=== PATIENT | female | born 1955 | race Hispanic/Latino ===

== ENCOUNTER 2019-01-01 12:50 | Outpatient (CLI) | payer OTHER ==
--- NOTE | 2019-01-01 13:34 | BD ---
DEXA BONE MINERAL DENSITOMETRY STUDY: HISTORY: Encounter for screening for osteoporosis. COMPARISON: DEXA exam from 2016. FINDINGS: Lumbar Spine: BMD (g/cm2) L1 0.723 T-Score: -2.4 -0.9 L2 0.719 T-Score: -2.8 -1.1 L3 0.779 T-Score: -2.8 -1.0 L4 0.906 T-Score: -1.4 0.5 L1-L4 0.789 T-Score: -2.3 -0.6 The comparison from 2016 is -0.2, statistically significantly. Femoral Neck: 0.614 T-Score: -2.1 -0.8 Total Femur: 0.695 T-Score: -2.0 -0.9 The comparison is -5.2%, statistically significant. WHO classification: Osteopenia. Ten-Year fracture risk: Major osteoporotic fracture: 7.8%. Hip fracture: 1.3%. Impression: Osteopenia with fracture risk as above. POS: TPC
--- NOTE | 2019-01-01 14:17 | MMO ---
Bilateral MAMMO Bilat Screen DDI+SULEMA. CLINICAL HISTORY: Patient is 63 years old and is seen for screening. The patient has no family history of breast cancer. The patient has no personal history of cancer. VIEWS: The views performed were: bilateral craniocaudal with tomosynthesis and bilateral mediolateral oblique with tomosynthesis. FILMS COMPARED: The present examination has been compared to prior imaging studies performed at [facility] on 09/13/2010, 09/17/2011, 04/22/2014 and 04/20/2015. This study has been interpreted with the assistance of computer-aided detection. MAMMOGRAM FINDINGS: There are scattered fibroglandular densities. There is an asymmetry measuring 11 millimeters seen in the MLO view only seen in the axillary tail of the right breast. In the left breast, there are no suspicious masses, calcifications or areas of architectural distortion. IMPRESSION: ASYMMETRY IN THE RIGHT BREAST REQUIRES ADDITIONAL EVALUATION. AN ULTRASOUND EXAM IS RECOMMENDED. THE RESULTS OF THIS EXAM WERE SENT TO THE PATIENT. ACR BI-RADS Category 0 - Incomplete: Need additional imaging evaluation. [facility] will notify the patient of the need for additional imaging services. MAMMOGRAPHY NOTE: 1. A negative mammogram report should not delay a biopsy if a dominant of clinically suspicious mass is present. 2. Approximately 10% to 15% of breast cancers are not detected by mammography. 3. Adenosis and dense breasts may obscure an underlying neoplasm. Reported by: KEERTHI DUNCAN MD Electonically Signed: [id number]
== END 2019-01-01 12:51 | disposition home or self-care (01) ==
LOC: BICMAMMO 12:50
PROVIDERS: ATTEND Family Medicine
DX: Z12.31 Encounter for screening mammogram for malignant neoplasm of breast (principal); Z13.820 Encounter for screening for osteoporosis; N64.89 Other specified disorders of breast; M81.0 Age-related osteoporosis without current pathological fracture; M85.859 Other specified disorders of bone density and structure, unspecified thigh
CPT/HCPCS: 77063; 77067; 77080

== ENCOUNTER 2019-01-14 15:59 | Outpatient (CLI) | payer OTHER ==
--- NOTE | 2019-01-14 16:26 | ULT ---
LIMITED RIGHT BREAST ULTRASOUND: 01/14/19 PROVIDED CLINICAL HISTORY: Abnormal screening mammogram. FINDINGS: Correlation is made with the screening mammogram of 01/01/19. On that examination, a high density spic ulated mass was seen in the right axillary tail/axilla. On the current ultrasound examination, there is a somewhat vague area of shadowing present in the region of the right axilla that may correspond t o the mammographic finding. A nonenlarged axillary lymph node is also seen. The axillary tail demonst rates an unremarkable sonographic appearance. IMPRESSION: Area of shadowing in the right axilla may correspond to the mammographic abnormality. Correlation wit h ultrasound guided biopsy is recommended with with post-biopsy mammograms to assess for congruity of the mammogram and ultrasound abnormalities. BI-RADS 4: Suspicious Abnormality - Ultrasound guided biopsy is recommended. Results and recommendati ons communicated to the patient via automotive parts interpreter. POS: OFF
== END 2019-01-14 16:00 | disposition home or self-care (01) ==
LOC: BICULT 15:59
PROVIDERS: ATTEND Family Medicine
DX: N64.89 Other specified disorders of breast (principal)

== ENCOUNTER → 2019-01-18 | Day surgery (SDC) | payer OTHER ==
--- NOTE | 2019-01-18 15:58 | ULT ---
ULTRASOUND RIGHT BREAST LIMITED: 01/18/2019 HISTORY: A 63-year-old female with right axillary mass, scheduled for ultrasound guided right breast biopsy. TECHNIQUE: Focused ultrasound of the entire right axilla and axillary tail of the right breast. FINDINGS: The area of shadowing mentioned on the report of the previous ultrasound of 01/14/2019 could not be r eproduced on today's ultrasound. Dr. Gregorio telephoned Ellen, the assistant professor surgical technology who performed the 01/14 ultrasound. Ellen stated that the finding of shadowing was questionable and that she was not sure whether it was real. There is a benign appearing lymph node in the right axilla on the previous ultrasound. Additional mammographic views of the right breast were obtained today, including a repeat RMLO view, centered more superiorly and posteriorly, with 3D tomosynthesis, plus true lateral view and exaggerat ed CC view, also with tomosynthesis. The focal nodule overlying the pectoralis muscle, deep in the po sterior-superior aspect of the axilla, persists on the repeat MLO view but cannot be found on the oth er views. Therefore it would not be possible to perform a mammographically guided needle localization . On the 3D tomosynthesis there is a question as to whether the margins are irregular and spiculated or whether the appearance of such is due to convergence of multiple blood vessels. IMPRESSION: 1. BI-RADS 3 - probably benign. Short interval followup suggested. 2. Although the lesion persists on the repeat RMLO view, it cannot be visualized on any other mammogr aphic view, and the results of the previous ultrasound cannot be reproduced on today's ultrasound. Th e mass is indeterminate for malignancy rather than probably benign. 3. Recommend serial short interval follow-up right mammograms and right breast/axillary ultrasounds i n three months, six months, one year, and two years. 4. Biopsy would be ideal but it cannot be performed because of difficulty in localization. POS: ISABEL
--- NOTE | 2019-01-18 16:06 | MMO ---
Right Breast MAMMO Unilat Diag DDI RT+SULEMA. CLINICAL HISTORY: Patient is 63 years old and is seen for additional evaluation requested from prior study. The patient has no family history of breast cancer. The patient has no personal history of cancer. VIEWS: The views performed were: right mediolateral oblique spot compression with tomosynthesis and right mediolateral with tomosynthesis. FILMS COMPARED: The present examination has been compared to prior imaging studies performed at [facility] on 04/20/2015, 01/01/2019, 01/14/2019 and 01/18/2019. This study has been interpreted with the assistance of computer-aided detection. MAMMOGRAM FINDINGS: There are scattered fibroglandular densities. Additional views were performed.: repeat RMLO centered more superiorly and posteriorly, right exaggerated CC, and true lateral. 3D tomosynthesis performed on all 3 views. The focal mass-like density is only visible in the RMLO projection. Its margins appear irregular, but it is uncertain whether that is due to what would be an unusual finding of numerous blood vessels surrounding it. Repeat ultrasound of the right axilla and axillary tail fails to convincingly reproduce the questionable finding of shadowing reported on the prior ultrasound. Dr. Millan spoke by phone to electronic technologist Ellen, who said that she was not sure whether the shadowing was real or not. Because the lesion is not reliably found on ultrasound, and because the nodule is only visible in one projection, plus the fact that is located far posteriorly and superiorly, neither an ultrasound guided biopsy nor a mammographically guided needle localization are possible. IMPRESSION: FINDING IN THE RIGHT BREAST IS PROBABLY BENIGN. FOLLOW-UP IN 3 MONTHS IS RECOMMENDED. THE LESION IS INDETERMINATE RATHER THAN PROBABLY BENIGN. RECOMMEND SERIAL FOLLOW UP RIGHT MAMMOGRAMS AND RIGHT BREAST ULTRASOUNDS AT 3, 6, 12, AND 24 MONTHS. THE RESULTS OF THIS EXAM WERE SENT TO THE PATIENT. ACR BI-RADS Category 3 - Probably benign finding - short interval follow-up suggested. [facility] will notify the patient of the need for additional imaging services. MAMMOGRAPHY NOTE: 1. A negative mammogram report should not delay a biopsy if a dominant of clinically suspicious mass is present. 2. Approximately 10% to 15% of breast cancers are not detected by mammography. 3. Adenosis and dense breasts may obscure an underlying neoplasm. Reported by: BRUNA MILLAN MD Electonically Signed: [id number]
== END ==
LOC: BICULT 13:10
PROVIDERS: ATTEND Family Medicine
DX: N60.21 Fibroadenosis of right breast (principal)
CPT/HCPCS: G0279

== ENCOUNTER 2019-05-05 10:26 | Outpatient (CLI) | payer OTHER ==
--- NOTE | 2019-05-05 11:35 | MMO ---
Right Breast MAMMO Unilat Diag DDI RT+SULEMA. CLINICAL HISTORY: Patient is 64 years old and is seen for follow-up at short-interval from prior study. The patient has no family history of breast cancer. The patient has no personal history of cancer. VIEWS: The views performed were: right craniocaudal with tomosynthesis; right mediolateral oblique with tomosynthesis; right mediolateral oblique spot compression with tomosynthesis; right mediolateral with tomosynthesis; and right exaggerated craniocaudal with tomosynthesis. FILMS COMPARED: The present examination has been compared to prior imaging studies performed at [facility] on 01/14/2019, 01/18/2019 and 05/05/2019. This study has been interpreted with the assistance of computer-aided detection. MAMMOGRAM FINDINGS: There are scattered fibroglandular densities. Nodule in the right upper breast MLO view is stable and not seen on US. There is small 1 cm nodule in the right axilla on US which could represent a lymph node. IMPRESSION: FINDING IN THE RIGHT BREAST IS PROBABLY BENIGN. FOLLOW-UP IN 6 MONTHS IS RECOMMENDED. THE RESULTS OF THIS EXAM WERE SENT TO THE PATIENT. ACR BI-RADS Category 3 - Probably benign finding - short interval follow-up suggested. [facility] will notify the patient of the need for additional imaging services. MAMMOGRAPHY NOTE: 1. A negative mammogram report should not delay a biopsy if a dominant of clinically suspicious mass is present. 2. Approximately 10% to 15% of breast cancers are not detected by mammography. 3. Adenosis and dense breasts may obscure an underlying neoplasm. Reported by: JOHN BRITTON MD Electonically Signed: [id number]
--- NOTE | 2019-05-05 11:39 | ULT ---
LIMITED RIGHT BREAST ULTRASOUND: HISTORY: Abnormal mammogram. FINDINGS: Sonographic evaluation of the right axilla demonstrates a 1 x 0.5 x 0.6 cm nonshadowing well-circumsc ribed hypoechoic nodule with echogenic center, likely lymph node. This was not seen on the previous study of 01/18/2019. IMPRESSION: BIRADS category 3 - probably benign findings. Recommend 6-month followup right breast ultrasound an d right diagnostic mammogram.
== END 2019-05-05 10:27 | disposition home or self-care (01) ==
LOC: BICMAMMO 10:26
PROVIDERS: ATTEND Family Medicine
DX: R92.8 Other abnormal and inconclusive findings on diagnostic imaging of breast (principal)
CPT/HCPCS: G0279

== ENCOUNTER 2019-12-14 14:28 | Outpatient (CLI) | payer MEDICARE ==
--- NOTE | 2019-12-14 15:53 | MMO ---
Bilateral MAMMO Bilat Diag DDI+SULEMA. CLINICAL HISTORY: Patient is 64 years old and is seen for diagnostic exam. The patient has no family history of breast cancer. The patient has no personal history of cancer. VIEWS: The views performed were: bilateral craniocaudal with tomosynthesis; bilateral mediolateral oblique with tomosynthesis; and bilateral mediolateral with tomosynthesis. FILMS COMPARED: The present examination has been compared to prior imaging studies performed at [facility] on 01/18/2019, 05/05/2019 and 12/14/2019. This study has been interpreted with the assistance of computer-aided detection. MAMMOGRAM FINDINGS: There are scattered fibroglandular densities. The right axillary nodule is stable. Ultrasound reveals a stable lymph node in right axilla. See ultrasound report. Recommend continued follow up of right breast and axilla. In the left breast, there are no suspicious masses, calcifications or areas of architectural distortion. IMPRESSION: FINDING IN THE RIGHT BREAST IS PROBABLY BENIGN. FOLLOW-UP RIGHT MAMMOGRAM AND ULTRASOUND IN 6 MONTHS IS RECOMMENDED. THE RESULTS OF THIS EXAM WERE SENT TO THE PATIENT. ACR BI-RADS Category 3 - Probably benign finding - short interval follow-up suggested. [facility] will notify the patient of the need for additional imaging services. MAMMOGRAPHY NOTE: 1. A negative mammogram report should not delay a biopsy if a dominant of clinically suspicious mass is present. 2. Approximately 10% to 15% of breast cancers are not detected by mammography. 3. Adenosis and dense breasts may obscure an underlying neoplasm. Reported by: ÁLVARO PAYAN MD Electonically Signed: [id number]
--- NOTE | 2019-12-14 16:01 | ULT ---
ULTRASOUND RIGHT AXILLA: 12/14/19 HISTORY: Soft tissue ultrasound of the right axilla is performed to assess a prominent nodular density seen in the right axilla on mammography. Comparison made to ultrasound exam of 05/05/19. FINDINGS: A small lymph node is again seen in the right axilla measuring approximately 0.8 x 0.5 cm. This is un changed in size and appearance from the ultrasound exam of 05/05/19. Another smaller lymph node is seen nearby measuring approximately 0.5 cm which has benign appearance. IMPRESSION: Stable mammogram and ultrasound findings of the right axillary nodule. The lymph node seen on ultraso und may correspond to the mammogram nodule. Recommend continued follow-up of the right breast with re peat right breast mammogram and right axillary ultrasound in six months. BIRADS 3: Probably Benign Finding Initial Short-Interval Follow-Up Suggested Initial short-term follow up (usually 6-month) examination of the right breast and right axilla. POS: OFF
== END 2019-12-14 14:29 | disposition home or self-care (01) ==
LOC: BICMAMMO 14:28
PROVIDERS: ATTEND Family Medicine
DX: R92.8 Other abnormal and inconclusive findings on diagnostic imaging of breast (principal)
CPT/HCPCS: 76999; 77066; G0279